=== PATIENT | male | born 1985 | race Caucasian/White ===

== ENCOUNTER 2017-10-31 14:51 | Emergency (ER) | payer OTHER ==
[~2017-10-31] VITALS: Ht 182.9 cm; Wt 86.2 kg
[~2017-10-31 14:51] MED LIST: ACETAMINOPHEN-1 EAC1 PO; IBUPROFEN 800800 M1 PO; KEFLEX500 MG PO; NOHOMEMEDICATIONS; NORCO 5-325 TA1 EACH PO; VICODIN 5-5001 EACH PO
[2017-10-31 15:17] LABS: ABSOLUTE EOSINOPHILS 0.1 thou/uL (0.0-0.7); ABSOLUTE LYMPHOCYTES 3.3 thou/uL (0.8-5.3); ABSOLUTE MONOCYTES 0.6 thou/uL (0.0-1.2); ABSOLUTE NEUTROPHILS 4.3 thou/uL (1.6-8.1); BASOPHILS 0.4 %; EOSINOPHILS 0.8 %; HEMATOCRIT 46.8 % (42.0-52.0); HEMOGLOBIN 16.1 gm/dL (14.0-18.0); LYMPHOCYTES 39.6 %; MCH 30.1 pg (26.0-34.0); MCHC 34.4 g/dL (28.0-37.0); MCV 87.5 fL (80.0-100.0); MONOCYTES 6.9 %; MPV 7.9 fl. (7.2-11.1); NUCLEATED RBCS 0 /100WBC; PLATELET COUNT* 227 thou/uL (150-400); POLYS 52.3 %; RBC 5.34 mil/uL (4.50-6.00); RDW-CV 13.1 % (10.5-14.5); WBC 8.3 thou/uL (4.0-11.0)
[2017-10-31 15:25] LABS: ANION GAP 8 mmol/L (7-16); BUN 9 mg/dL (7-18); CALCIUM 9.1 mg/dL (8.5-10.1); CHLORIDE 99 mmol/L (98-107); CO2 28 mmol/L (21-32); GLUCOSE 90 mg/dL (70-99); POTASSIUM 3.9 mmol/L (3.5-5.1); SODIUM 135 mmol/L (136-145)
[2017-10-31 15:44] LABS: ALBUMIN 4.2 g/dL (3.4-5.0); ALKALINE PHOSPHATASE 69 U/L (46-116); CK-MB MASS 2.5 ng/mL (<0.5-3.6); LIPASE 338 U/L (73-393); MAGNESIUM 1.6 mg/dL (1.8-2.4); NT-PRO BRAIN NAT PEPTIDE 6 pg/mL (<300); SGOT 21 U/L (15-37); SGPT 79 U/L (30-65); TOTAL BILIRUBIN 0.5 mg/dL (<0.1-1.0); TOTAL PROTEIN 7.7 g/dL (6.4-8.2); TROPONIN-I LEVEL <0.06 ng/mL (<0.06)
[2017-10-31 16:01] LABS: APTT 27.6 Seconds (25.0-31.3); INR 1.1; PROTIME 10.4 Seconds (9.20-11.50)
[2017-10-31 16:09] VITALS: BP 138/93
--- NOTE | 2017-11-01 10:34 | EKG ---
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
== END 2017-10-31 16:11 | disposition home or self-care (01) ==
LOC: M.ERS 14:51
PROVIDERS: Family Medicine
DX: R07.89 Other chest pain (principal); Z88.0 Allergy status to penicillin

== ENCOUNTER 2017-12-09 09:48 | Emergency (ER) | payer OTHER ==
[~2017-12-09] VITALS: Ht 182.9 cm; Wt 80.7 kg
[2017-12-09 09:56] VITALS: BP 141/99
[2017-12-09] MEDS ORDERED: IBUPROFEN 800800 M1 PO (10:57)
[2017-12-09] MEDS ORDERED: NORCO 5-325 TA1 EACH PO (10:57)
== END 2017-12-09 11:09 | disposition home or self-care (01) ==
LOC: M.ERS 09:48
DX: M25.561 Pain in right knee (principal)

== ENCOUNTER 2018-03-28 11:37 | Emergency (ER) | payer OTHER ==
[~2018-03-28] VITALS: Ht 185.4 cm; Wt 88.5 kg
[2018-03-28 12:25] LABS: ABSOLUTE MONOCYTES 0.7 thou/uL (0.0-1.2); ABSOLUTE NEUTROPHILS 6.7 thou/uL (1.6-8.1); BASOPHILS 0.2 %; EOSINOPHILS 0.3 %; HEMATOCRIT 44.8 % (42.0-52.0); HEMOGLOBIN 15.3 gm/dL (14.0-18.0); LYMPHOCYTES 21.2 %; MCH 30.2 pg (26.0-34.0); MCHC 34.3 g/dL (28.0-37.0); MCV 88.3 fL (80.0-100.0); MONOCYTES 7.6 %; MPV 8.1 fl. (7.2-11.1); NUCLEATED RBCS 0 /100WBC; PLATELET COUNT* 209 thou/uL (150-400); POLYS 70.7 %; RBC 5.08 mil/uL (4.50-6.00); RDW-CV 13.1 % (10.5-14.5); WBC 9.5 thou/uL (4.0-11.0)
[2018-03-28 12:35] LABS: CREATININE 0.9 mg/dL (0.6-1.3); POTASSIUM 3.9 mmol/L (3.5-5.1)
[2018-03-28 12:40] LABS: ALBUMIN 3.9 g/dL (3.4-5.0); TOTAL BILIRUBIN 1.2 mg/dL (<0.1-1.0); TOTAL PROTEIN 7.7 g/dL (6.4-8.2); URIC ACID* 8.3 mg/dL (2.6-7.2)
[2018-03-28] MEDS ORDERED: MEDROLDOSEPACK PO (13:16)
[2018-03-28] MEDS ORDERED: HYDROCODONE-AP1 EAC6 PO (13:16)
[2018-03-28 13:30] VITALS: BP 142/87
[2018-03-28 14:14] LABS: ESR (SEDRATE) 2 mm/hr (0-15)
== END 2018-03-28 13:31 | disposition home or self-care (01) ==
LOC: M.ERS 11:37
PROVIDERS: Nurse Practitioner Family
DX: M10.061 Idiopathic gout, right knee (principal); Z88.0 Allergy status to penicillin

== ENCOUNTER 2020-01-25 18:17 | Emergency (ER) | payer OTHER ==
[~2020-01-25] VITALS: Ht 182.9 cm; Wt 90.7 kg
[~2020-01-25 18:17] MED LIST changes: +HYDROCODONE-AP1 EAC6 PO; +MEDROLDOSEPACK PO
[2020-01-25 19:28] VITALS: BP 130/75
== END 2020-01-25 19:29 | disposition home or self-care (01) ==
LOC: M.ERS 18:17
DX: Z20.828 Contact with and (suspected) exposure to other viral communicable diseases (principal); M10.9 Gout, unspecified; Z88.0 Allergy status to penicillin

== ENCOUNTER 2020-03-29 13:34 | Emergency (ER) | payer OTHER ==
[~2020-03-29] VITALS: Ht 182.9 cm; Wt 90.7 kg
[2020-03-29 16:13] VITALS: BP 136/82
== END 2020-03-29 16:13 | disposition home or self-care (01) ==
LOC: M.ERS 13:34
DX: U07.1 COVID-19 (principal); Z88.0 Allergy status to penicillin